=== PATIENT | male | born 1975 | race Caucasian/White ===

== ENCOUNTER 2020-07-17 10:09 | Inpatient (IN) | payer BC ==
[~2020-07-17] VITALS: Ht 177.8 cm; Wt 88.5 kg
[2020-07-17 10:14] VITALS: BP 181/126
[2020-07-17 10:44] LABS: HEMATOCRIT 49.5 % (42.0-52.0); HEMOGLOBIN 17.3 gm/dL (14.0-18.0); MCH 38.6 pg (26.0-34.0); MCV 110.5 fL (80.0-100.0); PLATELET COUNT 238 thou/uL (150-400); RBC 4.48 mil/uL (4.50-6.00); RDW 17.1 % (10.5-14.5); WBC 6.5 thou/uL (4.0-11.0)
[2020-07-17 10:47] LABS: AMP/METHAMP Negative (Negative); BARBITURATES Negative (Negative); BENZODIAZEPINES Negative (Negative); COCAINE Negative (Negative); METHADONE Negative (Negative); OPIATES Negative (Negative); PCP Negative (Negative)
[2020-07-17 10:54] LABS: CALCIUM 8.7 mg/dL (8.5-10.1)
[2020-07-17 11:00] LABS: ALBUMIN 4.3 g/dL (3.4-5.0); DIRECT BILIRUBIN 0.7 mg/dL (<0.1-0.2); MAGNESIUM 1.2 mg/dL (1.8-2.4); PHOSPHORUS 2.9 mg/dL (2.5-4.9); TOTAL BILIRUBIN 1.2 mg/dL (0.2-1.0); TOTAL PROTEIN 7.8 g/dL (6.4-8.2)
[2020-07-17] MEDS ORDERED: ALLOPURINOL 10100 M1 PO (11:19)
[2020-07-17] MEDS ORDERED: CELECOXIB200 MG PO (11:19)
[2020-07-17] MEDS ORDERED: HYDROCHLOROTHIA25 M1 PO (11:21)
[2020-07-17] MEDS ORDERED: METOPROLOL SUCC50 MG PO (11:21)
--- NOTE | 2020-07-17 11:22 | EKG ---
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
[2020-07-17 11:24] LABS: ABSOLUTE NEUTROPHILS 4.2 thou/uL (1.4-8.2); ANISOCYTOSIS 2+; PLATELET ESTIMATE NORMAL
[2020-07-17 11:25] LABS: MACROCYTES 2+
[2020-07-17 11:51] LABS: URINE BILIRUBIN NEGATIVE (Negative); URINE BLOOD NEGATIVE (Negative); URINE CLARITY CLEAR; URINE COLOR YELLOW; URINE GLUCOSE-RANDOM* 2+ (Negative); URINE KETONES 1+ (Negative); URINE LEUKOCYTES-REFLEX NEGATIVE (Negative); URINE NITRITE-REFLEX NEGATIVE (Negative); URINE PROTEIN (DIPSTICK) 1+ (Negative); URINE UROBILINOGEN 0.2 E.U./dl (0.2-1.0)
[2020-07-17 11:58] LABS: BACTERIA-REFLEX 1-9 Few /HPF (None Seen); CASTS None Seen /LPF (None Seen); CRYSTALS None Seen /LPF (None Seen); SQUAMOUS 4-10 Moderate /LPF (0-3); URINE RBC None Seen /HPF (0-2); URINE WBC-REFLEX None Seen /HPF (0-5)
[2020-07-17 15:01] VITALS: BP 169/102
[2020-07-17 16:56] VITALS: BP 179/109
[2020-07-17 17:00] VITALS: BP 189/123
[2020-07-17 20:02] VITALS: BP 178/107
--- NOTE | 2020-07-17 23:08 | NUR ---
ASSUMED CARE FROM DAY SHIFT PT VERY RESTLESS, CIWA 17 , PT MEDICATED PER PROTOCOL , PT EASILY TO FOLLOW COMMAND, FALL BUNDLE IN PLACE WITHYELLOW SOCKS YELLOW SRM BAND AND BED ALARM ON. FREQ CHECKS HEART MONITOR 114
[2020-07-17 23:13] VITALS: BP 150/91
[2020-07-18] VITALS (7 sets, daily range): BP systolic 118–169; BP diastolic 79–106
[2020-07-18 05:23] LABS: HEMATOCRIT 43.9 % (42.0-52.0); HEMOGLOBIN 15.7 gm/dL (14.0-18.0); MCH 39.2 pg (26.0-34.0); MCHC 35.8 g/dL (28.0-37.0); MCV 109.6 fL (80.0-100.0); RBC 4.01 mil/uL (4.50-6.00); RDW 16.7 % (10.5-14.5); WBC 7.1 thou/uL (4.0-11.0)
[2020-07-18 05:42] LABS: CALCIUM 7.5 mg/dL (8.5-10.1); CREATININE 0.8 mg/dL (0.7-1.3); POTASSIUM 3.2 mmol/L (3.5-5.1)
--- NOTE | 2020-07-18 13:26 | NUR ---
Patient admitted last evening with ETOH withdraw. Patient consumes a pint a day per chart. Attempted to visit with patient but sound asleep with sitter at bedside. patient may be open to ETOH treatment but cannot assess.
--- NOTE | 2020-07-18 18:25 | NUR ---
ASSESSMENT CHARTED. SCORE 7 AND 8 ON CIWA. CIWA PROTOCAL APPLIED. SITTER AT THE BEDSIDE. CHARLES CATHETER INSERTED. NO CONCERNS AT THIS TIME.
[2020-07-19 04:04] LABS: HEMATOCRIT 43.4 % (42.0-52.0); HEMOGLOBIN 15.4 gm/dL (14.0-18.0); MCH 39.1 pg (26.0-34.0); MCHC 35.4 g/dL (28.0-37.0); MCV 110.5 fL (80.0-100.0); RBC 3.93 mil/uL (4.50-6.00); RDW 15.8 % (10.5-14.5); WBC 8.2 thou/uL (4.0-11.0)
--- NOTE | 2020-07-19 04:11 | NUR ---
Assumed pt care at 1900. Pt is in ETOH withdrawal. Pt is impulsive, confused, unable to follow command. Pt is confused. Sitter at bedside. CIWA protocol completed. Medication administered. Verbalizes pain. Assessment documented and completed. Scheduled meds administered to pt. Pt is agitated through the night. Ativan administered. Fll precaution in place. Continue to monitor place.
[2020-07-19 04:24] LABS: CALCIUM 7.9 mg/dL (8.5-10.1); CREATININE 0.8 mg/dL (0.7-1.3); POTASSIUM 3.6 mmol/L (3.5-5.1)
[2020-07-19 06:25] VITALS: BP 140/97
[2020-07-19 10:14] VITALS: BP 128/85
[2020-07-19 16:28] VITALS: BP 109/73
--- NOTE | 2020-07-19 18:27 | NUR ---
RECEIVED PT'S CARE AROUND 1000; PT. DROWSY; RESTING WITH EYES CLOSED; ALERT TO PLACE, TIME & NAME; ONE TO ONE CARE; THROUGH THE DAY PT. RESTLESS; FORGETFUL REQUESTED TO TAKE CHARLES OUT; EDUCATED ABOUT REASON OF CHARLES ON PLACED; ST. UNDERSTANDING; NEEDS TO BE REMAINED THROUGH THE DAY; DURING THE EARLY AFTERNOON PT. ST. WANTS TO GO HOME; TREMORS PRESENT; EDUCATED ABOUT THE REASON OF BEING OF HOSPITAL; ST. "I AM CALLING 911"; REMAINED ABOUT BEING IN THE HOSPITAL; LORAZEPAM GIVEN PRN; CIWA SCORE CHARGED; MONITORING; SR ON THE MONITOR; PER NURSE AID PT. ABLE TO HAVE A BM; ASSESSMENT CHARGED; FOLLOWING POC; WILL PASS ON REPORT;
[2020-07-19 19:54] VITALS: BP 124/83
--- NOTE | 2020-07-20 01:39 | NUR ---
PATIENT ASSESSED AND IS ALERT X 2. SKIN WARM AND DRY. MRESP EVEN AND UNLABORED. LEF LEG IS SWOLLEN FROM LYMPHADEMA AND RIGHT LEG IS TRACE OF SWELLEN NOTED. HAS A HEART MURMER SOUNDS. IS SHGIRTNESS OF BREATH AT TIMES. REFUSED O2, 02 STA IS 95%. HAD A BM TODAY. UP WITH STAND BY ASSIST. HAS A CHARLES WITH SEDIMENT IN IT NOTED. FERNANDO COLOR.ALMOST OLD BLOOD LOOKING. IS LAC COURTE OREILLES.IV FLUIDS INFUSING WELL, SITE HEALTHY LOOKING.TELE- SHOWS NSR. HR IN 80'S. VS STABLE. DENIES ANY PAIN. MEDS GIVEN AND IS SLEEPING WELL. CONT PLAN OF CARE.
--- NOTE | 2020-07-20 01:48 | NUR ---
PATIRNT ASSESSED AND IS ALERT X 2. SKIN WARM AND DRY. RESP EVEN AND UNLABORED. NO 02 AT THIS TIME. SITTER AT BEDSIDE. GETS AGITATED ALOT.CIWA DONE AND SCORES A 10 AT THIS TIME, WANTING HIS PHONE. NOT REALLY TOO AGITATED AT THIS TIME ON ASSESSMENT. CIWA AT 0059 IS 18, PATIENT VERY AGAITATED AT THIS TIME. IS VERY FORGETFUL MOST OF THIS SHIFT.HAS A CHARLES URINE VERY ORANGE. ALERT X 3 LOREZAPAM GIVEN WITH SOME RELIEF, THEN COMPLAINING OF CHARLES HAD A 800 CC. HAS A ETOH PROTOCOL. HAS A RIGHT FA, WRAPPED WITH [place]. TELE- SHOWS NSR OR [facility] GIVEN FOR PAIN IN [place], ALSO CALLED DR DAVE AND RECEIVED ORDER FOR HALDOL. HALDOL GIVEN WITH GREAT RELIEF, ROLLED OVER AND WENT TO SLEEP. SITTER REMIAN AT BEDSIDE. CONT PLAN OF CARE.
--- NOTE | 2020-07-20 02:29 | NUR ---
DANIEL NT AWAKEN AFTER THE HALDOL STILL SAYING THIS IS A SCAM. SECURITY CALLED AND TRY TO KEEP HIM IN BED SITTER AT BEDSIDE. LORAZEPAM GIVEN CIWA IS 18. REMIANS RESTLESS. WILL TRY TO REASON WITH HIM BUT HE IS FORGETFUL AND CONFUSED. WILL MONITOR CLOSELY. REFUSES TELEMETRY. KEEP MONITER CLOSELY.
[2020-07-20 03:37] LABS: BASOPHILS 0.6 % (0.0-2.0); EOSINOPHILS 0.5 % (0.0-3.0); HEMATOCRIT 39.9 % (42.0-52.0); HEMOGLOBIN 13.9 gm/dL (14.0-18.0); LYMPHOCYTES 15.6 % (24.0-44.0); MCH 38.7 pg (26.0-34.0); MCHC 34.9 g/dL (28.0-37.0); MCV 110.7 fL (80.0-100.0); MONOCYTES 10.3 % (1.0-8.0); PLATELET COUNT 163 thou/uL (150-400); RBC 3.61 mil/uL (4.50-6.00); RDW 15.7 % (10.5-14.5); WBC 8.2 thou/uL (4.0-11.0)
[2020-07-20 03:48] LABS: ALBUMIN 3.2 g/dL (3.4-5.0); CREATININE 0.7 mg/dL (0.7-1.3); POTASSIUM 3.3 mmol/L (3.5-5.1); TOTAL BILIRUBIN 1.6 mg/dL (0.2-1.0); TOTAL PROTEIN 6.1 g/dL (6.4-8.2)
--- NOTE | 2020-07-20 06:36 | NUR ---
PATIENT REMAINS AGITATED AND RESTLESS. LORAZEPAM GIVEN PER CIWA OF 13. DID LET STAFF PUT ON HIS TELEMETRY. CONT TO MONITOR.
[2020-07-20 06:39] VITALS: BP 134/78
[2020-07-20 08:36] VITALS: BP 121/86
[2020-07-20 13:13] VITALS: BP 135/73
[2020-07-20 16:30] VITALS: BP 137/86
--- NOTE | 2020-07-20 17:25 | NUR ---
ASSUMED CARE AT SHIFT CHANGE, REMIANS RESTLESS AND AGGITATED. MEDICATED PER CIWA PROTOCOL. 1:1 SITTER AT THE BEDSIDE FOR SAFETY. AND WILL CONTINUE WITH POC.
[2020-07-20 20:35] VITALS: BP 138/90
[2020-07-21 05:54] VITALS: BP 132/73
--- NOTE | 2020-07-21 07:46 | NUR ---
pt confused and alert to name, restless and impulsive, at start of shift after severl prn meds pt agreed to rest and slept most of the morning, iv remains intact and he allowed monitor to be placed back on and id bracelet, report given to next shift, sitter at bedside.
[2020-07-21 08:10] VITALS: BP 143/74
[2020-07-21 12:15] VITALS: BP 132/73
[2020-07-21 16:15] VITALS: BP 132/73
--- NOTE | 2020-07-21 18:03 | NUR ---
Spoke with patient regarding treatment options for alcohol. 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 He sees patients at [facility] and [facility]. He discussed difficulty with jobs of social work associate over years and stress. He has rec treatment at [facility] and [facility]. He reports preferred [facility]. He has attended AA meetings but reports they can trigger him. He reports he does not want to go to treatment at this time. He wants to dc home and "work on himself." He has a therapist Augustin Gomez. He reports he has ADHD. He fired his primary care, primary care was prescribing his psychiatric medications and he did not feel was going well. He is interested in new primary care from [facility] as we are close to home. Discussed possibly f/u with psychiatrist and gave numbers for Dr Cortes and phys at [facility]. Plan transfer off unit.
--- NOTE | 2020-07-21 19:01 | NUR ---
PT CARE ASSUMED AT 0700. ASSESSMENT CHARTED. MEDICATION CHARTED. CIWA: 0 COMPLETE. PT TRANSFERRED TO [facility]. TAMAR IV. MED/SURG. PT IS UP AD MARLYN. WALKS AROUND [facility].
--- NOTE | 2020-07-21 19:21 | NUR ---
RECEIVED REPORT FROM MILENA. CHARGE NURSE MADE PREVIOUS UNIT AWARE OF THE FACT THAT WE CANNOT TAKE A PT ON CIWA. WAS REPORTED TO US THAT PT WAS HIGH SCORING ON 07/20, BUT HAS SCORED 0 ENTIRE DAY TODAY. CIWA WAS DISCONTINUED FOR PT PRIOR TO SENDING TO UNIT. PT CAME BEFORE SHIFT CHANGE, GAVE WATER AND SNACKS. PT TOLD ME HE WAS GOING TO ASK NIGHT NURSE FOR LORAZEPAM IN ORDER TO SLEEP WELL AND DECREASE ALCOHOL INTAKE UPON DISCHARGE. ENDORSED TO NIGHT NURSE.
[2020-07-21 19:25] VITALS: BP 103/75
[2020-07-22 05:48] LABS: HEMATOCRIT 40.4 % (42.0-52.0); HEMOGLOBIN 14.3 gm/dL (14.0-18.0); MCH 39.2 pg (26.0-34.0); MCHC 35.3 g/dL (28.0-37.0); MCV 111.1 fL (80.0-100.0); RBC 3.64 mil/uL (4.50-6.00); RDW 15.6 % (10.5-14.5); WBC 4.5 thou/uL (4.0-11.0)
[2020-07-22 05:59] LABS: CALCIUM 9.1 mg/dL (8.5-10.1); CREATININE 0.7 mg/dL (0.7-1.3)
[2020-07-22 06:05] LABS: POTASSIUM 2.9 mmol/L (3.5-5.1)
--- NOTE | 2020-07-22 07:58 | NUR ---
Assumed pt care at 1900. A/OX4,VSS. Up ad dalton w/o problems, c/o levy knee pain but declined need for pain meds asking how he can get cortisone shots;informed he needs to discuss with his PCP to determine the need pt verbalized understanding. Requested for sleep aid,Trazadone ordered with slight relief reported. Pt calls approp for help.
[2020-07-22 08:02] VITALS: BP 133/93
[2020-07-22] MEDS ORDERED: NORVASC10 MG PO (09:51)
[2020-07-22] MEDS ORDERED: TRAZODONE HCL50 MG PO (09:52)
[2020-07-22] MEDS ORDERED: VITAMIN B-1100 M2 PO (09:54)
[2020-07-22] MEDS ORDERED: JANUVIA100 MG PO (10:17)
[2020-07-22 10:27] VITALS: BP 154/97
--- NOTE | 2020-07-22 10:57 | NUR ---
CARE TEAM INDICATED THAT PT IS MEDICALLY STABLE TO DISCHARGE HOME THIS DAY. PT HAD BEEN PROVIDED INFO AND RECOURCES FOR FOLLOW UP PSYC CARE, SUBSTANE ABUSE TREATMENT, AND PRIMARY CARE PROVIDERS HERE AT [facility]. NO OTHER CM INTERVENTION INDICATED. PT IS TO DC HOME TO SELF CARE THIS DAY. CASE CLOSED.
[2020-07-22 11:12] VITALS: BP 134/82
--- NOTE | 2020-07-22 11:43 | NUR ---
ASSUMED PT CARE THIS AM. PT VITAL SIGNS STABLE, A&OX4. PT COMPLAINED OF PAIN BUT DENIED NEEDING MEDICATION FOR PAIN. PT TOOK A SHOWER PRIOR TO DISCHARGE. PT AMBULATORY TO RESTROOM. DISCHARGE PAPERS SIGNED AND COMMUNICATED UNDERSTANDING. DISCHARGED AT 1117.
== END 2020-07-22 12:30 | disposition home or self-care (01) | DRG 896 ==
LOC: ER 10:09 → EROBS 14:30 → 2N 14:30 → 4W 07-21 18:29
PROVIDERS: Emergency Medicine; ADMIT Hospitalist; ATTEND Hospitalist
DX: F10.139 Alcohol abuse with withdrawal, unspecified (principal); G93.41 Metabolic encephalopathy; E87.2 Acidosis; I16.0 Hypertensive urgency; E11.9 Type 2 diabetes mellitus without complications
CPT/HCPCS: 10040; 10045; 10081

== ENCOUNTER 2020-09-26 15:18 | Inpatient (IN) | payer BC ==
[~2020-09-26] VITALS: Ht 175.3 cm; Wt 78.9 kg
[~2020-09-26 15:18] MED LIST: ALLOPURINOL 10100 M1 PO; CELECOXIB200 MG PO; HYDROCHLOROTHIA25 M1 PO; JANUVIA100 MG PO; METOPROLOL SUCC50 MG PO; NORVASC10 MG PO; TRAZODONE HCL50 MG PO; VITAMIN B-1100 M2 PO
[2020-09-26 15:19] VITALS: BP 141/92
[2020-09-26 16:00] LABS: ABSOLUTE NEUTROPHILS 12.2 thou/uL (1.4-8.2); BASOPHILS 0.3 % (0.0-2.0); HEMATOCRIT 52.9 % (42.0-52.0); HEMOGLOBIN 18.7 gm/dL (14.0-18.0); MCH 33.9 pg (26.0-34.0); MCHC 35.3 g/dL (28.0-37.0); MCV 96.1 fL (80.0-100.0); MONOCYTES 13.2 % (1.0-8.0); PLATELET COUNT 229 thou/uL (150-400); POLYS 83.5 % (36.0-66.0); RBC 5.51 mil/uL (4.50-6.00); RDW 15.1 % (10.5-14.5); WBC 14.6 thou/uL (4.0-11.0)
[2020-09-26 16:12] LABS: APTT 25.4 Seconds (24.5-32.8); INR 1.1; PROTIME 11.7 Seconds (9.3-11.4)
[2020-09-26 17:10] LABS: ALBUMIN 3.5 g/dL (3.4-5.0); CALCIUM 10.3 mg/dL (8.5-10.1); DIRECT BILIRUBIN 0.6 mg/dL (<0.1-0.2); TOTAL BILIRUBIN 2.7 mg/dL (0.2-1.0); TOTAL PROTEIN 6.5 g/dL (6.4-8.2)
[2020-09-26 18:01] LABS: MAGNESIUM 1.8 mg/dL (1.8-2.4); PHOSPHORUS 3.2 mg/dL (2.6-4.7)
[2020-09-26 19:32] LABS: FOLIC ACID 51.9 ng/mL (8.6-58.9)
[2020-09-26 19:51] LABS: ALBUMIN 3.5 g/dL (3.4-5.0); CALCIUM 10.4 mg/dL (8.5-10.1); CREATININE 1.1 mg/dL (0.7-1.3); PHOSPHORUS 2.5 mg/dL (2.6-4.7)
[2020-09-26 20:44] LABS: URINE BILIRUBIN NEGATIVE (Negative); URINE BLOOD 1+ (Negative); URINE CLARITY CLEAR; URINE COLOR YELLOW; URINE GLUCOSE-RANDOM* 2+ (Negative); URINE KETONES 3+ (Negative); URINE LEUKOCYTES-REFLEX NEGATIVE (Negative); URINE NITRITE-REFLEX NEGATIVE (Negative); URINE PROTEIN (DIPSTICK) TRACE (Negative); URINE UROBILINOGEN 0.2 E.U./dl (0.2-1.0)
[2020-09-26 20:51] LABS: PROT/CREAT RATIO 0.7; URINE CREATININE-RANDOM* 58.2 mg/dL; URINE PROTEIN-RANDOM* 41.1 mg/dL (<11.9)
[2020-09-26 20:53] LABS: AMP/METHAMP Negative (Negative); BARBITURATES Negative (Negative); BENZODIAZEPINES Negative (Negative); COCAINE Negative (Negative); METHADONE Negative (Negative); OPIATES Negative (Negative); PCP Negative (Negative)
[2020-09-26 20:54] LABS: BACTERIA-REFLEX None Seen /HPF (None Seen); CRYSTALS None Seen /LPF (None Seen); HYALINE CASTS 0-3 Few /LPF (None Seen); MUCUS None Seen strn/LPF (None Seen); SQUAMOUS None Seen /LPF (0-3); URINE RBC 0-2 Rare /HPF (0-2); URINE WBC-REFLEX None Seen /HPF (0-5)
--- NOTE | 2020-09-26 22:43 | NUR ---
Spoke to Merari regarding oral potassium. Reports to draw BMP at around 2315 before giving oral potassium.
[2020-09-26 23:45] LABS: CALCIUM 11.2 mg/dL (8.5-10.1); CREATININE 1.1 mg/dL (0.7-1.3)
[2020-09-26 23:48] LABS: POTASSIUM 2.9 mmol/L (3.5-5.1)
[2020-09-27] VITALS (8 sets, daily range): BP systolic 114–153; BP diastolic 72–96
--- NOTE | 2020-09-27 07:02 | NUR ---
VSS-AFEBRILE. ALERT AND ORIENTED X 2-3, CONFUSED, RESTLESS, AND VERY UNSTABLE ON FEET. OOB WITH 2 ASSIST TO USE THE RESTROOM. PLACED ON 2LNC DUE TO LOW SAO2 WHILE SLEEPING. VOIDS WITHOUT DIFFICULTY USING URINAL. CIWA PROTOCOL ORDERED, PATIENT STATES HE HASNT HAD AN ALCOHOLIC DRINK X [address] F[address] PRECAUTIONS IN PLACE.
[2020-09-27 08:50] LABS: HEMATOCRIT 46.8 % (42.0-52.0); MCH 34.2 pg (26.0-34.0); MCHC 35.6 g/dL (28.0-37.0); RBC 4.87 mil/uL (4.50-6.00); RDW 14.3 % (10.5-14.5); WBC 9.2 thou/uL (4.0-11.0)
[2020-09-27 08:52] LABS: HEMOGLOBIN 16.6 gm/dL (14.0-18.0)
[2020-09-27 09:10] LABS: ALBUMIN 3.2 g/dL (3.4-5.0); CALCIUM 10.1 mg/dL (8.5-10.1); PHOSPHORUS 1.8 mg/dL (2.5-4.9); POTASSIUM 3.3 mmol/L (3.5-5.1)
[2020-09-27 11:30] LABS: ABSOLUTE NEUTROPHILS 6.9 thou/uL (1.4-8.2)
[2020-09-27 11:31] LABS: LARGE PLATELETS OCCASIONAL
[2020-09-27 11:32] LABS: ANISOCYTOSIS SLIGHT; PLATELET COUNT 142 thou/uL (150-400)
--- NOTE | 2020-09-27 13:17 | NUR ---
PT MOSTLY ASLEEP IN BED, WAKES UP TO URINATE IN URINAL AND TAKE SIPS OF WATER, TOOK A FEW BITES OF FOOD, BUT NOT VERY INTERESTED IN EATING RIGHT NOW, DR JIMÉNEZ IN TO SEE PT, HE IS ALERT TO HIMSELF BUT VERY FORGETFUL AND GOES TO SLEEP QUICKLY, SPOKE WITH PT'S FATHER, RICCARDO, WILL KEEP SIDERAILS UP X 3 FOR SAFETY, BED ALARM ON
[2020-09-27 13:27] LABS: ALBUMIN 3.3 g/dL (3.4-5.0); CALCIUM 9.8 mg/dL (8.5-10.1); CREATININE 1.1 mg/dL (0.7-1.3)
[2020-09-27 16:36] LABS: CALCIUM 9.2 mg/dL (8.5-10.1); CREATININE 0.9 mg/dL (0.7-1.3); PHOSPHORUS 2.2 mg/dL (2.5-4.9)
[2020-09-27] MEDS ORDERED: TRULICITY0.75 MG/0. (18:47)
[2020-09-27] MEDS ORDERED: FLONASE 0.05%50 MCG NARES (18:48)
[2020-09-27] MEDS ORDERED: BUPROPION XL300 MG PO (18:48)
[2020-09-27] MEDS ORDERED: CHLORTHALIDONE25 MG (18:49)
[2020-09-27 21:27] LABS: CALCIUM 8.8 mg/dL (8.5-10.1); CREATININE 0.9 mg/dL (0.7-1.3); PHOSPHORUS 1.6 mg/dL (2.5-4.9); POTASSIUM 3.3 mmol/L (3.5-5.1)
[2020-09-28 04:08] VITALS: BP 125/79
[2020-09-28 04:08] LABS: CALCIUM 8.4 mg/dL (8.5-10.1); CREATININE 0.7 mg/dL (0.7-1.3); MAGNESIUM 1.4 mg/dL (1.8-2.4); PHOSPHORUS 1.3 mg/dL (2.5-4.9); POTASSIUM 3.2 mmol/L (3.5-5.1)
[2020-09-28 04:25] LABS: HEMATOCRIT 43.1 % (42.0-52.0); HEMOGLOBIN 15.2 gm/dL (14.0-18.0); MCH 33.7 pg (26.0-34.0); MCHC 35.3 g/dL (28.0-37.0); MCV 95.7 fL (80.0-100.0); RBC 4.51 mil/uL (4.50-6.00); RDW 14.8 % (10.5-14.5); WBC 8.3 thou/uL (4.0-11.0)
--- NOTE | 2020-09-28 04:49 | NUR ---
ASSUME CARE 1900. PT/VITALS STABLE. DENIES ANY PAIN. PT IS A/O TO PERSON AND PLACE AND VERY IMPULSIVE. MILD TREMORS BUT NO HALLUCINATIONS NOTED. ATIVAN FOR AGITATION. SR ON MONITOR. ASSESSMENT CHARTED. PROGRESSING MODERATELY WITH POC. PLAN IS TO CONTINUE TO MONITOR LOC, REPLACE ELECTROLYTES AND MINERALS, AND IMPROVE OVERALL HEALTH. WILL CONTINUE TO MONITOR AND FOLLOW WITH POC
[2020-09-28 07:45] VITALS: BP 128/89
[2020-09-28 11:55] VITALS: BP 144/91
[2020-09-28 12:23] LABS: ALBUMIN 3.2 g/dL (3.4-5.0); CALCIUM 8.9 mg/dL (8.5-10.1); CREATININE 0.8 mg/dL (0.7-1.3); MAGNESIUM 1.5 mg/dL (1.8-2.4); PHOSPHORUS 2.5 mg/dL (2.6-4.7)
[2020-09-28 12:24] LABS: POTASSIUM 4.2 mmol/L (3.5-5.1)
[2020-09-28 16:30] VITALS: BP 113/80
[2020-09-28 16:43] VITALS: BP 140/78
--- NOTE | 2020-09-28 18:46 | NUR ---
PT IS ALERT TO SELF ONLY. PT ON CIWA PRECAUTIONS. PT IS AGITATED AND RESTLESS, TRYING TO TRANSFER SELF. PT IS ON FALL PRECAUTIONS HE IS UNSTEADY ON HIS FEET. PT FELL HE TRIED TO TRANSFER HIMSELF OUT OF BED. CHARGE NURSE, SUPERVISER, PHYSICIAN, AND FAMILY NOTIFIED. FATHER CAME TO VISIT BUT PT WAS ASLEEP. DR JIMÉNEZ SAW PT. PT HAS BEEN RESTING INTERMITTENTLY THROUGHOUT THE DAY WITH SITTER PRESENT. PT HAS BECOME MORE COHERENT AND PLEASANT AT 1600. PT SAT UP FOR DINNER AND WAS CALM AND COOPERATIVE. FALL PRECAUTIONS IN PLACE. CIWA PROTOCOL CONTINUED. NO CONCERNS AT THIS TIME.
[2020-09-28 19:45] VITALS: BP 119/77
[2020-09-29 04:23] LABS: ALBUMIN 3.2 g/dL (3.4-5.0); CALCIUM 8.7 mg/dL (8.5-10.1); CREATININE 0.7 mg/dL (0.7-1.3); MAGNESIUM 2.2 mg/dL (1.8-2.4); PHOSPHORUS 2.3 mg/dL (2.5-4.9); POTASSIUM 3.4 mmol/L (3.5-5.1)
--- NOTE | 2020-09-29 04:39 | NUR ---
PT IS ALERT BUT IMPULSIVE ETOH. ONE TO ONE AT BEDSIDE FOR NURISNG CARE. CAN BE IMPULSIVE AT TIMES WITH CARE. KEEPS TAKING ALL HIS CLOTHES OFF. REORIENTATION HE IS AT THE HOSPITAL. SEVERAL TIMES WITH NURSING CARE. LUNGS ARE CLEAR TO DIMINISHED. TAKES TELE LEADS OFF TOO WITH CARE. PLACED BACK ON NUMEROUS TIMES. BEDREST. STANDS AT SIDE OF BED TO VOID. CWAH SCALE IS A 6. ATIVAN GIVEN NEEDED FOR CARE CALL LIGHT WITHIN REACH. AND SITTER AT BEDSIDE
[2020-09-29 07:27] VITALS: BP 128/86
[2020-09-29 12:39] VITALS: BP 146/90
[2020-09-29 17:03] VITALS: BP 139/90
--- NOTE | 2020-09-29 20:03 | NUR ---
RECEIVED PT'S CARE AROUND 0720; PT. ON BED; ALERT TO PERSON AND PLACE; FORGETFUL; SR ON THE MONITOR; ONE TO ONE CARE; DURING AM ASSESSMENT NO C/O PAIN; PRN LORAZEPAM GIVEN WITH AM MEDICATIONS; REMAINED REASON TO STAY IN THE HOSPITAL AND NOT BEING D/C FROM HOSPITAL; ST. UNDERSTANDING; REMAINED FROM TIME TO TIME; ST ON THE MONITOR WITH EXERTION; ASSESSMENT CHARGED; FOLLOWING POC; PASSED ON REPORT;
[2020-09-30] VITALS (7 sets, daily range): BP systolic 132–149; BP diastolic 87–97
--- NOTE | 2020-09-30 05:19 | NUR ---
ASSUME CARE 1900. PT/VITALS STABLE. DENIES PAIN. GOOD ENDURANCE TO ACTIVITY. A/O TO PERSON/SITUATION AND SOMETIMES PLACE. ST ON MONITOR. ADEQUATE REST WITH NO DISTRESS NOTED THROUGH THE NIGHT. PROGRESSING WELL WITH POC. ASSESSMENT CHARTED. PLAN IS TO CONTINUE MONITOR LOC/ELECTROLYTES AND POSSIBLE DISCHARGE WITHIN A FEW DAYS. WILL CONTINUE TO MONITOR AND FOLLOW WITH POC
[2020-09-30 06:19] LABS: HEMATOCRIT 46.7 % (42.0-52.0); HEMOGLOBIN 16.4 gm/dL (14.0-18.0); MCH 34.1 pg (26.0-34.0); MCHC 35.1 g/dL (28.0-37.0); MCV 97.1 fL (80.0-100.0); RBC 4.81 mil/uL (4.50-6.00); RDW 14.7 % (10.5-14.5); WBC 7.2 thou/uL (4.0-11.0)
[2020-09-30 06:46] LABS: CALCIUM 8.8 mg/dL (8.5-10.1); CREATININE 0.8 mg/dL (0.7-1.3); POTASSIUM 3.4 mmol/L (3.5-5.1)
--- NOTE | 2020-09-30 16:20 | NUR ---
Chart reviewed and case discussed with the care team. Sharebroker visited with the pt via phone. Cm role introduced. Pt reports he works and lives indep. He has a good support system in place and anticipates his mother will be able to pick him up at dc. He is hoping to go home tomorrow. He is up ad dalton in his room. He declined discussion of ethol tx resouces and programs but did agree he would be ok with some resource info on his dc instructions. DC instructions updated with ethol tx resouces and programs. Pt has a pcp ([facility]) and ins in place for f/u care at dc. No cm interventions anticipated. Will follow along should dc needs arise.
[2020-10-01 04:09] VITALS: BP 134/90
[2020-10-01 05:20] LABS: HEMATOCRIT 45.2 % (42.0-52.0); HEMOGLOBIN 15.7 gm/dL (14.0-18.0); MCH 34.2 pg (26.0-34.0); MCHC 34.7 g/dL (28.0-37.0); MCV 98.5 fL (80.0-100.0); RBC 4.59 mil/uL (4.50-6.00); RDW 14.8 % (10.5-14.5); WBC 7.1 thou/uL (4.0-11.0)
[2020-10-01 05:34] LABS: CREATININE 0.8 mg/dL (0.7-1.3)
[2020-10-01 07:44] VITALS: BP 147/92
--- NOTE | 2020-10-01 08:45 | NUR ---
ASSUME CSARE 1900. PT/VITALS STABLE. DENIES ANY PAIN. A/O X 4. NO SIGNS OF WITHDARWALS NOTED. NO DISTRESS HROUGH THE NIGHT. SR NOTED ON MONITOR. ASSESSMENT CHARTED. PROGRESSING WELL WITH POC. PLAN IS POSSIBLE DISCHARGE TODAY. WILL CONTINUE TO MONITOR AND FOLLOW WITH POC
[2020-10-01 11:51] VITALS: BP 130/80
[2020-10-01 15:33] LABS: CALCIUM 8.8 mg/dL (8.5-10.1); CREATININE 0.8 mg/dL (0.7-1.3)
[2020-10-01 15:35] LABS: POTASSIUM 4.2 mmol/L (3.5-5.1)
[2020-10-01 16:22] VITALS: BP 126/81
[2020-10-01 20:02] VITALS: BP 152/80
--- NOTE | 2020-10-01 20:39 | NUR ---
ASSESSMENT CHARTED - MEDS PER NOV - PT WITH 3.0 k+ this am - given 40 meq po and 40 iv ordered - pt could not tolerated iv K+ therfore 40 meq more po given post lab was k+ 4.2. pt yup ad dalton in room with use of walker today. pt stated patient not as steady on feet today and should use walker. markus diet and fluids. pt requesting saline spray - obtained for patient. given tylenol for pain at iv site while k+ was infusing with mod relief. pt stated he was excited to go hme this am and then half way through day stated he did not want to go home he felt he needed more time here. pt encouraged to attend rehab faciltiy and continue to get better. pt with no co's at the present time.
[2020-10-02 05:09] VITALS: BP 121/52
--- NOTE | 2020-10-02 06:00 | NUR ---
ASSUMED CARE OF THE PATIENT AT 1900; AOX4/CONFUSED/RESTLESS AT TIMES; SR ON THE MONITOR / HR IN 90s; SBA WITH URINAL AT BEDSIDE; ACHS WITH COVERAGE; NO C/O OF PAIN; MANAGING GOUT SX WITH ICE PACK TO SITE AND SCHEDULED MEDS; TENTATIVE PLAN IS FOR PATIENT TO D/C TO HOME TODAY; WILL CONTINUE TO MONITOR.
[2020-10-02 08:00] VITALS: BP 132/88
[2020-10-02 08:25] VITALS: BP 133/82
[2020-10-02 09:28] LABS: CALCIUM 9.1 mg/dL (8.5-10.1); CREATININE 0.8 mg/dL (0.7-1.3); MAGNESIUM 1.8 mg/dL (1.8-2.4); POTASSIUM 4.2 mmol/L (3.5-5.1)
[2020-10-02 11:04] VITALS: BP 132/88
--- NOTE | 2020-10-02 11:05 | NUR ---
PT DCING TODAY TO OUTPT F/U. THERAPY DID CLEAR HIM FOR DC THIS AM BUT RECOMMENDED A RWALKER FOR SAFE GAIT. SCRIPT GIVEN TO PROVIDER PLUS IN HOUSE LIASON TO ISSUED DIRECTLY TO THE PT THIS AM.
[2020-10-02] MEDS ORDERED: PREDNISONE 10 M10 MG PO (11:19)
== END 2020-10-02 12:31 | disposition home or self-care (01) | DRG 896 ==
LOC: ER 15:18 → EROBS 20:27 → 2N 20:27
PROVIDERS: Emergency Medicine; Internal Medicine; Internal Medicine Nephrology; Nurse Practitioner; Nurse Practitioner Family; ADMIT Hospitalist; ATTEND Hospitalist
DX: F10.229 Alcohol dependence with intoxication, unspecified (principal); G93.41 Metabolic encephalopathy; E87.1 Hypo-osmolality and hyponatremia; F10.230 Alcohol dependence with withdrawal, uncomplicated; Y90.9 Presence of alcohol in blood, level not specified; E87.6 Hypokalemia; M19.90 Unspecified osteoarthritis, unspecified site; M10.9 Gout, unspecified; F17.200 Nicotine dependence, unspecified, uncomplicated; E11.9 Type 2 diabetes mellitus without complications; E83.39 Other disorders of phosphorus metabolism; Z20.822 Contact with and (suspected) exposure to COVID-19; Z79.899 Other long term (current) drug therapy
CPT/HCPCS: 10081